=== PATIENT | female | born 1990 | race Caucasian/White ===

== ENCOUNTER 2017-06-02 17:48 | Emergency (ER) | payer BC ==
[~2017-06-02] VITALS: Ht 167.6 cm; Wt 130.5 kg
[~2017-06-02 17:48] MED LIST: ADIPEX-P37.5 MG PO; TROKEND25; VIT B 12; ZOLOFT 50MG50 MG PO; [UNRECOGNIZED DRUG - OTHER]
[2017-06-02 17:52] VITALS: BP 167/91; TEMP 97.8
[2017-06-02] MEDS ORDERED: EFFEXOR-XR150 MG PO (18:18)
[2017-06-02] MEDS ORDERED: TESSALON PERLE200 MG PO (18:19)
[2017-06-02] MEDS ORDERED: MONODOX100 PO (18:19)
[2017-06-02 20:18] VITALS: PULSE 80
== END 2017-06-02 20:18 | disposition home or self-care (01) ==
LOC: COL.ER 17:48
DX: R05 Cough (principal); R07.9 Chest pain, unspecified; F41.9 Anxiety disorder, unspecified
CPT/HCPCS: A9284; J1885

== ENCOUNTER → 2018-01-23 | Outpatient (CLI) | payer BC ==
[~2018-01-23] VITALS: Ht 167.6 cm; Wt 93.0 kg
[~2018-01-23] MED LIST changes: +EFFEXOR-XR150 MG PO; +MONODOX100 PO; +MULTIPLE VITAMI1 TA5 PO; +TESSALON PERLE200 MG PO; +VITAMIN B11000 MCG/M; +VITAMIN D3400 I1 PO
[2018-01-23 16:46] VITALS: BP 126/82; PULSE 68
== END ==
LOC: LIGHT 16:20
DX: E66.01 Morbid (severe) obesity due to excess calories (principal); Z68.34 Body mass index [BMI] 34.0-34.9, adult; Z71.3 Dietary counseling and surveillance; Z98.84 Bariatric surgery status
CPT/HCPCS: G0463

== ENCOUNTER → 2018-02-14 | Outpatient (CLI) | payer BC | LOC: LIGHT 12:01 | DX: Z01.89 Encounter for other specified special examinations (principal) ==

== ENCOUNTER → 2019-05-24 | Outpatient (CLI) | payer BC | LOC: COL.CARD 13:55 | DX: R03.0 Elevated blood-pressure reading, without diagnosis of hypertension (principal) ==